=== PATIENT | female | born 1985 | race Caucasian/White ===

== ENCOUNTER 2016-11-07 12:03 | Emergency (ER) | payer SELFPAY ==
[2016-11-07 12:40] LABS: COLOR YELLOW; LEUKOCYTE ESTERASE,URINE TRACE (NEGATIVE); NITRITE,URINE NEGATIVE (NEGATIVE)
[2016-11-07 13:00] LABS: BACTERIA 1+ /hpf (NONE SEEN); RENAL EPITHELIAL CELLS OCCASIONAL /hpf (NONE SEEN); WBC,URINE 50-182 /hpf (0-3)
[2016-11-07 13:05] VITALS: BP 119/76; PULSE 75; TEMP 98.2
[2016-11-07] MEDS ORDERED: ONDANSETRON DISINTEGRATING 4 MG TAB PO ONE (13:33)
[2016-11-07 13:55] VITALS: RESP 16; O2SAT 96
--- NOTE | 2016-11-08 14:43 | UCPHY ---
H & P Time Seen by Provider: 11/07/16 13:09 Patient Type: New HPI/ROS: This patient has this urinary tract symptoms. Maintains that 2 days prior to arrival she developed dysuria, frequency and urgency along with mild right flank pain. She also has mild fatigue associated with her symptoms. She has partial relief from [id number] NSAIDs and no other exacerbating factors. She vomiting Monday which has resolved since. She is now tolerating p.o. intake. She reports the intensity of her right flank pain is 4/10. ROS: No high fevers or chills. No other constitutional symptoms besides what is mentioned in HPI. HEENT: No complaints pulmonary: No complaints cardiovascular: No lightheadedness GI: No abdominal pain. : No vaginal discharge. Last menstrual period was normal timing. 7 point ROS is otherwise negative. Past Medical/Surgical History: Otherwise healthy Smoking Status: Never smoked Physical Exam: General Appearance: Alert, no distress. Eyes: Pupils equal and round no pallor or injection. ENT, Mouth: Mucous membranes moist. Respiratory: There are no retractions, lungs are clear to auscultation. Cardiovascular: Regular rate and rhythm. Gastrointestinal: Mild suprapubic tenderness with no guarding or rebound. Back: Minimal right CVA tenderness. Neurological: Alert with no focal deficits. Skin: Warm and dry, no rashes. Musculoskeletal: Neck is supple nontender. Extremities are symmetrical, full range of motion. Psychiatric: Mood and affect are normal INITIAL DIFFERENTIAL DIAGNOSIS: After history and physical exam differential diagnosis was considered for cystitis, interstitial cystitis, pyelonephritis, ureteral stone. Constitutional: Initial Vital Signs Temperature (C) 36.8 C 11/07/16 12:32 Heart Rate 75 11/07/16 12:32 Respiratory Rate 14 11/07/16 12:32 Blood Pressure 119/76 11/07/16 12:32 O2 Sat (%) 98 11/07/16 12:32 O2 Delivery Mode Room Air Allergies/Adverse Reactions: Penicillins Allergy (Verified 11/07/16 13:34) Home Medications: Medication Instructions Recorded Cephalexin [Keflex (*)] 500 mg PO TID #21 cap 11/07/16 Ondansetron Odt [Zofran Odt] 4 - 8 mg PO Q4PRN PRN #4 tab 11/07/16 Phenazopyridine HCl [Pyridium 200 mg PO TID PRN #6 tab 11/07/16 200mg (RX)] MDM/Departure - MDM Diagnostics: URINALYSIS IS CONSISTENT WITH UTI. Medications Given: Discontinued Medications Ondansetron HCl (Zofran Odt) 4 mg PO EDNOW ONE Stop: 11/07/16 13:34 Last Admin: 11/07/16 13:34 Dose: 4 mg ED Course/Re-evaluation: Discussion: Although this patient reported some symptoms and history concerning for pyelonephritis she has a fairly benign exam currently with normal vital signs only minimal CVA tenderness. We did discuss possibility of more aggressive treatment but she is comfortable with oral antibiotics, Zofran ODT if needed I think this is reasonable given her well appearing status currently. - Depart Disposition: Home, Routine, Self-Care Clinical Impression: Urinary tract infection Instructions: Urinary Tract Infection in Women (ED) Prescriptions: Cephalexin [Keflex (*)] 500 mg PO TID #21 cap Ondansetron Odt [Zofran Odt] 4 - 8 mg PO Q4PRN PRN #4 tab PRN Reason: Vomiting Phenazopyridine HCl [Pyridium 200mg (RX)] 200 mg PO TID PRN #6 tab PRN Reason: dysuria Referrals: NONE *PRIMARY CARE P,. [Primary Care Provider] - As per Instructions - PQRS PQRS Measurement: NA
== END 2016-11-07 13:56 | disposition home or self-care (01) ==
LOC: CED 12:03
DX: N39.0 Urinary tract infection, site not specified (principal)
CPT/HCPCS: 81003-PO; 81015-PO; 99203-PO; G0463-PO